=== PATIENT | female | born 2005 | race Two or more races ===

== ENCOUNTER 2024-06-07 14:41 | Emergency (ER) | payer SELFPAY ==
[~2024-06-07] VITALS: Ht 167.6 cm; Wt 90.7 kg
[2024-06-07 14:58] VITALS: BP 117/73; TEMP 98.6; O2SAT 99
== END 2024-06-07 15:13 | disposition home or self-care (01) ==
LOC: ER 14:54
DX: J06.9 Acute upper respiratory infection, unspecified (principal); B97.89 Other viral agents as the cause of diseases classified elsewhere